=== PATIENT | male | born 2000 | race Caucasian/White ===

== ENCOUNTER 2025-08-28 18:04 | Emergency (ER) | payer BC, SELFPAY ==
[2025-08-28 18:06] VITALS: BP 121/79; PULSE 116; RESP 19; TEMP 36.9; O2SAT 96
[2025-08-28 18:12] VITALS: PULSE 122; RESP 20; O2SAT 98
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
[2025-08-28] MEDS: ACETAMINOPHEN 500 MG TABLET 1000 MG PO (21:06)
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
== END 2025-08-28 22:32 | disposition home or self-care (01) ==
PROVIDERS: Emergency Provider Emergency Medicine; PCP Nurse Practitioner Primary Care
DX: S93.401A Sprain of unspecified ligament of right ankle, initial encounter (principal); S83.92XA Sprain of unspecified site of left knee, initial encounter; S83.91XA Sprain of unspecified site of right knee, initial encounter; S30.11XA Contusion of abdominal wall, initial encounter; Y92.410 Unspecified street and highway as the place of occurrence of the external cause; S09.90XA Unspecified injury of head, initial encounter; V43.52XA Car driver injured in collision with other type car in traffic accident, initial encounter
CPT/HCPCS: 70450; 73562; 73600; 74176; 99282; A9270